=== PATIENT | male | born 1950 | race Caucasian/White ===

== ENCOUNTER 2021-11-19 14:38 | Observation (INO) ==
[2021-11-19] MEDS ORDERED: Naloxone 0.4 MG/ML INJ IVP PRN (16:41)
[2021-11-19] MEDS ORDERED: *HR* Heparin 5,000 UNIT/ML VIAL IVP ONE (17:11)
[2021-11-19] MEDS ORDERED: *HR* Heparin 5,000 UNIT/ML VIAL IVP PRN ×2 (17:11)
[2021-11-19] MEDS: Heparin 25,000UNIT/250ML 1/2NS 25,000 UNIT/250 ML IV.SOLN IVC SCH (18:15)
[2021-11-19 19:11] LABS: Hematocrit 41.7 % (37.5-50.1); Hemoglobin 15.2 g/dL (12.9-16.9); Mean Corpuscular HGB Conc 36.5 g/dL (31.6-35.5); Mean Corpuscular Hemoglobin 35.5 pg (28.0-33.3); Mean Corpuscular Volume 97.4 fL (83.0-100.0); Mean Platelet Volume 9.9 fL (9.4-12.4); Platelet Count 157 K/mcL (140-400); Red Blood Count 4.28 M/mcL (4.19-5.50); Red Cell Distribution Width 12.9 % (11.5-14.5); White Blood Count 8.2 K/mcL (4.3-11.1)
[2021-11-19 19:19] LABS: INR 1.1; Prothrombin Time 12.2 Seconds (9.4-12.1)
[2021-11-19] MEDS ORDERED: traZODone 50 MG TABLET PO SCH (21:00)
[2021-11-19] MEDS: hydrOXYzine pamoate 25 MG CAPSULE PO SCH (21:29)
[2021-11-19] MEDS: *HR* HYDROcodone/Acet 7.5/325 mg TABLET PO SCH (21:29)
[2021-11-19] MEDS: Gabapentin 300 MG CAPSULE PO SCH (21:30)
[2021-11-20 03:21] LABS: Basophils # 0.1 K/mcL (0.0-0.2); Basophils % 0.6 %; Eosinophils # 0.4 K/mcL (0.0-0.6); Eosinophils % 4.6 %; Hematocrit 38.3 % (37.5-50.1); Immature Granulocytes % 0.6 % (0-4); Lymphocytes % 33.7 %; Mean Corpuscular HGB Conc 34.5 g/dL (31.6-35.5); Mean Corpuscular Hemoglobin 32.2 pg (28.0-33.3); Mean Corpuscular Volume 93.4 fL (83.0-100.0); Mean Platelet Volume 10.4 fL (9.4-12.4); Monocytes # 0.6 K/mcL (0.0-1.3); Monocytes % 6.9 %; Neutrophils # 4.7 K/mcL (1.6-8.9); Platelet Count 200 K/mcL (140-400); Red Cell Distribution Width 12.7 % (11.5-14.5); Segmented Neutrophils % 53.6 %; White Blood Count 8.8 K/mcL (4.3-11.1)
[2021-11-20 03:37] LABS: Hemoglobin 13.2 g/dL (12.9-16.9)
[2021-11-20 03:47] LABS: Calcium 9.1 mg/dL (8.6-10.3); Potassium 4.2 mEq/L (3.5-5.1)
[2021-11-20] MEDS: *HR* HYDROcodone/Acet 7.5/325 mg TABLET PO SCH ×2 (07:27→12:28)
[2021-11-20] MEDS: hydrOXYzine pamoate 25 MG CAPSULE PO SCH ×2 (07:27→14:19)
[2021-11-20] MEDS: Gabapentin 300 MG CAPSULE PO SCH ×2 (07:27→14:19)
[2021-11-20] MEDS ORDERED: Perflutren Lipid Microsphere 1.3 ML in 0.9 % Sodium Chloride 8.7 ML IVP PRN (08:46)
[2021-11-20 10:41] VITALS: O2SAT 96
[2021-11-20] MEDS ORDERED: Aspirin Enteric Coated 81 MG Tablet PO SCH (14:15)
[2021-11-20] MEDS: Heparin 25,000UNIT/250ML 1/2NS 25,000 UNIT/250 ML IV.SOLN IVC SCH (14:20)
[2021-11-20 14:43] VITALS: PULSE 72; TEMP 98.2
[2021-11-20 15:07] VITALS: BP 154/73
[2021-11-20] MEDS ORDERED: carvediloL 6.25 MG TABLET PO SCH (17:00)
[2021-11-20] MEDS ORDERED: *HR* Heparin 5,000 UNIT/ML VIAL SQ SCH (18:00)
== END 2021-11-20 16:41 | disposition home or self-care (01) ==
LOC: 3BNU → SUATTDRO 15:46
PROVIDERS: ADMIT Internal Medicine; ATTEND Registered Nurse